=== PATIENT | male | born 1945 | race Caucasian/White ===

== ENCOUNTER 2022-02-02 14:44 | Outpatient (CLI) | payer MEDICARE, SELFPAY ==
[2022-02-02 17:36] LABS: Albumin* 4.5 g/dL (3.3-5.0); Chloride* 102 mmol/L (96-114); Potassium* 4.4 mmol/L (3.6-5.1); Sodium* 135 mmol/L (135-149)
[2022-02-02 17:38] LABS: Bilirubin Total* 0.5 mg/dL (0.1-1.5); Carbon Dioxide* 20 mmol/L (20-32); Cholesterol* 247 mg/dL (90-199); Creatinine* 1.5 mg/dL (0.5-1.5); Estimated Glomerular Filt Rate 48 ml/min; Total Protein* 7.8 g/dL (6.0-8.3)
[2022-02-02 17:39] LABS: Alanine Aminotransferase* 15 U/L (4-50); Alkaline Phosphatase* 73 U/L (40-150); Aspartate Amino Transferase* 22 U/L (12-35); Blood Urea Nitrogen* 31 mg/dL (7-30); Glucose* 115 mg/dL (60-115); Triglycerides* 364 mg/dL (40-149)
[2022-02-02 17:40] LABS: HDL Cholesterol* 38 mg/dL (>=40); LDL Cholesterol Calculated 136 mg/dL (<100)
[2022-02-02 18:11] LABS: PSA Screen* < 0.06 ng/mL (0.10-4.00)
== END 2022-02-02 14:45 | disposition home or self-care (01) ==
PROVIDERS: PCP Internal Medicine; Visit Provider Internal Medicine
DX: I10 Essential (primary) hypertension (principal); E03.9 Hypothyroidism, unspecified; C61 Malignant neoplasm of prostate; Z13.6 Encounter for screening for cardiovascular disorders; Z12.5 Encounter for screening for malignant neoplasm of prostate
CPT/HCPCS: 80053; 80061; 84153; 84443

== ENCOUNTER 2022-06-19 09:32 | Outpatient (CLI) | payer MEDICARE, SELFPAY ==
--- NOTE | 2022-06-19 10:00 | CRLHL7_ITS ---
For Patients: As a result of the 21st Century Cures Act, medical imaging exams and procedure reports are released immediately into your electronic medical record. You may view this report before your referring provider. If you have questions, please contact your health care provider. INDICATION: Neck swelling. Comparison none. TECHNIQUE: CT soft tissue neck with IV contrast. Isovue 370, 93 cc. FINDINGS: Marked enlargement of the left thyroid lobe. There is associated deviation of the trachea and esophagus towards the right. Predominate heterogeneous low-attenuation throughout the left thyroid lobe with central area of cystic change or necrosis (best appreciated series 3, image 62). This left thyroid lobe mass measures approximately 6.1 x 7 x 9.4 cm (transverse by AP by cephalocaudal). Inferior aspect left thyroid lobe extends just below the thoracic inlet. There is heterogeneous low attenuation nodularity of the right thyroid lobe with measuring 2.7 x 2.2 cm. There is low-attenuation nodule within the left neck and just deep to the left sternocleidomastoid muscle measuring approximately 2 x 3 cm (series 3, image 60). Low-attenuation change may be secondary to cystic or necrotic change. No adenopathy elsewhere within the neck. Normal bilateral spot parotid and submandibular glands. Nasopharynx and oropharynx are clear. No inflammation within the parapharyngeal fat pads are retropharyngeal space. Calcified tonsilliths on the left. Normal thickness of the epiglottis. Normal glottis with symmetric vocal cords. The airway is patent. Lung apices are clear. Normal alignment of the cervical spine. Cervical spondylosis. No prevertebral soft tissue swelling. Visualized paranasal sinuses and mastoid air cells are clear. IMPRESSION: 1. Marked enlargement of the left thyroid lobe. Underlying predominantly low attenuation mass involving the left thyroid lobe with central area of cystic change or necrosis. Overall, findings are concerning for thyroid malignancy. Associated mass effect and deviation of the trachea or esophagus towards the right. 2. Low-attenuation nodule within the left neck with central cystic or necrotic change measures 2 x 3 centimeters and is concerning for a metastatic level 4 lymph node. 3. Similar but smaller low attenuation nodularity within the right thyroid lobe. 4. No adenopathy elsewhere. 5. Deep soft tissues of the neck are otherwise normal. 6. Cervical spondylosis Please note that all CT scans at this facility use dose modulation, iterative reconstruction, and/or weight-based dosing when appropriate to reduce radiation dose to as low as reasonably achievable. Dictated by Lanre Carpenter MD @ 06/19/2022 3:35:57 PM (Electronically Signed)
[2022-06-19 10:25] LABS: Creatinine* 1.3 mg/dL (0.5-1.5); Estimated Glomerular Filt Rate 57 ml/min
== END 2022-06-19 09:33 | disposition home or self-care (01) ==
LOC: CT 09:35
PROVIDERS: PCP Internal Medicine; Visit Provider Internal Medicine
DX: R22.1 Localized swelling, mass and lump, neck (principal); E04.9 Nontoxic goiter, unspecified; M47.892 Other spondylosis, cervical region
CPT/HCPCS: 36415; 70491; 82565; Q9967

== ENCOUNTER 2022-06-21 09:08 | Outpatient (CLI) | payer MEDICARE, SELFPAY | END 2022-06-21 09:09 | disposition home or self-care (01) | PROVIDERS: PCP Internal Medicine; Visit Provider Internal Medicine | DX: E07.9 Disorder of thyroid, unspecified (principal) | CPT/HCPCS: 84443 ==

== ENCOUNTER 2022-06-28 09:55 | Outpatient (CLI) | payer MEDICARE, SELFPAY ==
--- NOTE | 2022-06-28 10:15 | CRLHL7_ITS ---
For Patients: As a result of the Cures Act, medical imaging exams and procedure reports are released immediately into your electronic medical record. You may view this report before your referring provider. If you have questions, please contact your health care provider. INDICATION : Left thyroid lobe mass and abnormally enlarged low-density lymph node in the lateral soft tissues adjacent to the thyroid gland within the left lower neck. TECHNIQUE : Ultrasound-guided fine-needle aspiration of left thyroid lobe mass along with core needle biopsy of the large left thyroid lobe mass and core needle biopsy x2 of the enlarged left lower neck lymph node. Comparison CT soft tissue neck 06/19/2022 FINDINGS : PROCEDURE: After the informed consent and time-out, multiple fine needle aspirations were obtained from the large left thyroid lobe mass. Fine needle performed. 25 gauge needles were used. In addition, a single core needle biopsy performed using an 18 gauge Temno needle. Lidocaine was used for local anesthesia. The preliminary cytology was adequate for interpretation. Two core needle biopsy specimens using an 18 gauge Temno needle also performed involving the enlarged left lower neck lymph node which measures 2.8 x 1.8 x 1.8 cm. Real-time imaging was used for guidance and needle placement. Post imaging ultrasound demonstrates no immediate complication. IMPRESSION : Successful fine needle aspiration/core needle biopsy of large left thyroid lobe mass and core needle biopsy of enlarged left lower neck lymph node. Dictated by Lio English MD @ 06/28/2022 12:08:10 PM (Electronically Signed)
--- NOTE | 2022-06-28 11:15 | CRLHL7_ITS ---
For Patients: As a result of the Century Cures Act, medical imaging exams and procedure reports are released immediately into your electronic medical record. You may view this report before your referring provider. If you have questions, please contact your health care provider. Indication: Left thyroid mass Technique: Grayscale ultrasound of the left thyroid mass performed. Comparison: CT soft tissue neck 06/19/2022 Findings: Large mass arising from the left thyroid lobe is present with heterogeneously hypoechoic internal echotexture and measuring at least 9.8 cm in craniocaudad dimension. Impression: Large left thyroid mass. Subsequent biopsy performed. Dictated by Lio English MD @ 06/28/2022 12:06:06 PM (Electronically Signed)
== END 2022-06-28 09:56 | disposition home or self-care (01) ==
LOC: US 09:56
PROVIDERS: PCP Internal Medicine; Visit Provider Internal Medicine
DX: E07.9 Disorder of thyroid, unspecified (principal)
CPT/HCPCS: 10005; 76536; 88173; 88305; 88341; 88342; 88360; 88365; 88366; A4649

== ENCOUNTER 2022-06-29 12:37 | Outpatient (CLI) | payer MEDICARE, SELFPAY ==
--- NOTE | 2022-06-29 13:00 | CRLHL7_ITS ---
For Patients: As a result of the 21st Century Cures Act, medical imaging exams and procedure reports are released immediately into your electronic medical record. You may view this report before your referring provider. If you have questions, please contact your health care provider. Indication: Neck mass Technique: Postcontrast CT chest, abdomen and pelvis. 94 cc Isovue 370 intravenous contrast. Please note that all CT scans at this facility use dose modulation, iterative reconstruction, and/or weight-based dosing when appropriate to reduce radiation dose to as low as reasonably achievable. Comparison: CT neck 06/19/2022 Findings: In the chest, large mass associated with the left thyroid lobe is again noted measuring approximately 6.2 cm. Adjacent low-density left lateral lower neck lymph node measures 1.6 cm. Compression of the left internal jugular vein again noted. Deviation of the trachea to the right. The airway is not compromised. 2 cm right thyroid lobe nodule again noted. There is also a low-density structure within the superior mediastinum adjacent to the trachea measuring 2.2 cm which may represent an additional lymph node. No enlarged lymph nodes lower within the mediastinum or within the doug. No axillary adenopathy. Atherosclerotic disease. No aneurysm. Left lower lobe pulmonary nodule measuring 5 millimeters, 3/44. Perifissural nodule on the same image left lower lobe measuring 7 millimeters. Additional perifissural nodules images 43-44 on the right measuring 6.5 millimeters and 5 millimeters. No infiltrate. No pulmonary edema or pleural effusion. No pneumothorax. In the abdomen, sub centimeters cysts are present within the liver. The gallbladder is normal. No biliary obstruction. Mild pancreatic atrophy. Normal adrenal glands. There are multiple simple renal cortical cysts bilaterally measuring up to 7.1 cm on the right and up to 5.9 cm on the left. There is an additional heterogeneous circumscribed persists with areas of water attenuation and areas of more soft tissue attenuation arising from the inferior pole of the left kidney laterally measuring 3.6 x 3.3 cm. Curvilinear calcifications are noted within the wall of this cyst. No hydronephrosis. Atherosclerotic disease. No aneurysm. No retroperitoneal or mesenteric adenopathy. The stomach appears normal. Normal appearance of the small bowel. In the pelvis, the bladder is without stone. Bilateral small bladder diverticula noted with mild bladder wall trabeculation. The prostate is absent. Sigmoid diverticulosis. No diverticulitis. No bowel obstruction. No free air, free fluid or abscess. Appendix normal. Degenerative disc disease L4-5 on the right. No compression fracture. Impression: Large left thyroid lobe mass with adjacent low-density left lower neck lymph node and possible additional lymph nodes in the superior mediastinum, similar to the prior neck CT. Small bilateral pulmonary nodules which are primarily perifissural measuring up to 7 millimeters. Complex cystic lesion arising from the lower pole of the left kidney with areas of increased attenuation centrally and peripheral calcifications. MRI with and without contrast recommended for further characterization. Status post prostatectomy. Please note that all CT scans at this facility use dose modulation, iterative reconstruction, and/or weight-based dosing when appropriate to reduce radiation dose to as low as reasonably achievable. Dictated by Lio English MD @ 06/29/2022 3:55:52 PM (Electronically Signed)
--- NOTE | 2022-06-29 13:00 | CRLHL7_ITS ---
For Patients: As a result of the Century Cures Act, medical imaging exams and procedure reports are released immediately into your electronic medical record. You may view this report before your referring provider. If you have questions, please contact your health care provider. INDICATION: Thyroid cancer, concern for metastatic disease TECHNIQUE: CT of the neck with 94 ml iodinated contrast agent. Coronal and sagittal reconstructions are included. COMPARISON: CT neck 06/19/2022 FINDINGS: Redemonstration of marked asymmetric low-attenuation enlargement of the left thyroid lobe, with superior margin of the level of the hyoid, and inferior margin extending into the superior mediastinum. The previously noted hypodense nodule along the inferior right thyroid lobe is less conspicuous on today`s exam, possibly technique-related. Similar degree of regional mass effect with rightward deviation of the hypopharynx, larynx, and trachea. However, the visualized airway appears grossly patent. Again noted is an enlarged, cystic/necrotic left level 4 lymph node, measuring 1.8 cm short axis on this exam (series 2, image 60). No other cystic or pathologically enlarged lymph nodes identified in the neck. 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 The left vertebral artery is diffusely diminutive, likely on a congenital basis, with poorly visualized V3 segment. There is a nonspecific 8 mm sclerotic focus along the posterior left mandibular condyle (series 2, image 24). Asymmetric osteoarthritic changes are noted at the right glenohumeral joint and bilateral AC joints. Upper chest findings are dictated separately. IMPRESSION: 1. Redemonstration of marked asymmetric enlargement of the left thyroid lobe suspicious for malignancy, and adjacent cystic/necrotic left level 4 lymph node concerning for bright metastasis. 2. No other suspicious cervical lymphadenopathy identified. 3. 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 This appears stable relative to 06/19/2022, although otherwise age indeterminate. Please note that all CT scans at this facility use dose modulation, iterative reconstruction, and/or weight-based dosing when appropriate to reduce radiation dose to as low as reasonably achievable. Dictated by Jeanine Ziegler MD @ 06/29/2022 3:09:39 PM (Electronically Signed)
== END 2022-06-29 12:38 | disposition home or self-care (01) ==
PROVIDERS: PCP Internal Medicine; Visit Provider Surgery
DX: E07.9 Disorder of thyroid, unspecified (principal); R91.8 Other nonspecific abnormal finding of lung field; N28.1 Cyst of kidney, acquired
CPT/HCPCS: 70491; 71260; 74177; Q9967

== ENCOUNTER 2022-07-20 10:47 | Outpatient (RCR) | payer MEDICARE, SELFPAY ==
[2022-07-20 14:07] LABS: Basophils Absolute Auto 0.03 K/uL (0.00-0.30); Basophils Percent Auto 0.3 % (0.0-3.0); Eosinophils Absolute Auto 0.07 K/uL (0.00-0.50); Eosinophils Percent Auto 0.8 % (0.0-7.0); Hematocrit 41.7 % (37.0-53.0); Hemoglobin* 13.6 gm/dL (13.5-17.5); Immature Granulocytes Abs Auto 0.62 K/uL (0.00-0.30); Lymphocytes Percent Auto 13.1 % (20-44); Mean Corpuscular HGB Conc 33 gm/dL (32-36); Mean Corpuscular Hemoglobin 26 pg (26-34); Mean Corpuscular Volume 80 fL (80-100); Monocytes Percent Auto 1.8 % (0.0-11.0); Platelet Count* 328 K/uL (140-440); RDW Coefficient of Variation % 15.1 % (11.5-15.5); Red Blood Count 5.21 m/uL (4.30-5.90); White Blood Count* 8.84 K/uL (4.50-11.00)
[2022-07-20 14:16] LABS: Slide Review Reflex No
[2022-07-27 09:16] LABS: Basophils Percent Auto 0.9 % (0.0-3.0); Eosinophils Percent Auto 0.1 % (0.0-7.0); Hematocrit 38.8 % (37.0-53.0); Hemoglobin* 12.8 gm/dL (13.5-17.5); Immature Granulocytes Pct Auto 6.8 %; Lymphocytes Percent Auto 12.3 % (20-44); Mean Corpuscular HGB Conc 33 gm/dL (32-36); Mean Corpuscular Hemoglobin 26 pg (26-34); Mean Corpuscular Volume 80 fL (80-100); Monocytes Percent Auto 10.7 % (0.0-11.0); Neutrophils Percent Auto 69.2 % (42.0-72.0); Platelet Count* 214 K/uL (140-440); RDW Coefficient of Variation % 15.6 % (11.5-15.5); Red Blood Count 4.88 m/uL (4.30-5.90)
[2022-07-27 09:27] LABS: Slide Review Reflex No
== END 2023-06-22 08:36 | disposition home or self-care (01) ==
LOC: LAB 10:47
PROVIDERS: PCP Internal Medicine
DX: Z51.11 Encounter for antineoplastic chemotherapy (principal); C83.39 Diffuse large B-cell lymphoma, extranodal and solid organ sites; Z79.899 Other long term (current) drug therapy
CPT/HCPCS: 36415; 85025

== ENCOUNTER 2022-11-10 07:54 | Outpatient (RCR) | payer MEDICARE, SELFPAY | END 2023-05-09 23:59 | disposition home or self-care (01) | LOC: CCIC 07:54 | PROVIDERS: PCP Internal Medicine; Referring Provider Internal Medicine; Visit Provider Internal Medicine | DX: C83.39 Diffuse large B-cell lymphoma, extranodal and solid organ sites (principal) | CPT/HCPCS: 99211 ==

== ENCOUNTER 2023-02-22 08:38 | Outpatient (CLI) | payer MEDICARE, SELFPAY | END 2023-02-22 08:39 | disposition home or self-care (01) | LOC: NFLDREF 02-26 05:50 | PROVIDERS: PCP Internal Medicine; Referring Provider Internal Medicine; Visit Provider Internal Medicine | DX: C61 Malignant neoplasm of prostate (principal); E07.9 Disorder of thyroid, unspecified | CPT/HCPCS: 84153; 84443 ==

== ENCOUNTER 2023-12-12 09:30 | Outpatient (CLI) | payer MEDICARE, SELFPAY ==
--- OUTSIDE RECORDS SUMMARY | 2023-12-12 09:34 | XMS_ITS ---
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 Past Plans Flushes/Hydration Plan Name Start Date Discontinue Date Treatment Medications Discontinue Reason Plan Provider VASCULAR ACCESS PATENCY - PERIPHERAL INTRAVENOUS CATHETER AND RAPID INFUSION CATHETER 07/14/2022 07/09/2023 No medications scheduled. Therapy Complete - Hematology / Oncology Treatment 1 Plan Name Start Date Discontinue Date Treatment Medications Discontinue Reason Plan Provider Cycles R-CHOP (riTUXimab / cyclophosphamide / DOXOrubicin / vinCRIStine / predniSONE) 07/15/19 23 02/19/2023 cycloPHOSphamide (Cytoxan)cycloPHOS phamide (Cytoxan) IVPB in 250 mL (1 g vial) (Cytoxan)DOXOrubic in (Adriamycin)riTUXi mab-pvvr (Ruxience)riTUXima b-pvvr (Ruxience) IVPB (RESTRICTED) (Ruxience)vinCRISt ine (Oncovin)vinCRISti ne (Oncovin) IVPB in 50 mL solution Therapy Complete Anna Arias APRN, C.N.P., D.N.P. 4 of 6 cycles started Radiation Treatments * Plan Last Treated On Elapsed Days Fractions Treated Prescribed Fraction Dose Prescribed Total Dose [id number] 12/08/2022 18 15 of 15 200 cGy 3,000 cGy Reference Point Last Treated On Elapsed Days Session Dose Total Dose [id number] 12/08/2022 18 200 cGy 3,000 cGy Lifetime Dose Tracking * Chemical Lifetime Dose Automatic Entry Manual Entr y doxorubicin 204.61 mg/m2 (400 mg) 204.61 mg/m2 (400 m g) 0 mg/m2 (0 mg) Pediatric total anthracycline 204.61 mg/m2 (400 mg) 204.61 mg/m2 (400 mg) 0 mg/m2 (0 mg) Adult total anthracycline 204.61 mg/m2 (400 mg) 204.61 mg/m2 (400 mg) 0 mg/m2 (0 mg)
--- OUTSIDE RECORDS SUMMARY | 2023-12-12 09:34 | XMS_ITS ---
Author Organization [facility] Address [address] [place] [address] Care Team Providers Care Buffer Machine Name Role Phone Unavailable Unavailable Unavailable Surgery Details Not on file Complications Check Surgery Details section. Procedure Estimated Blood Loss Check Surgery Details section. Procedure Findings Check Surgery Details section. Procedure Specimens Taken Check Surgery Details section.
--- OUTSIDE RECORDS SUMMARY | 2023-12-12 09:34 | XMS_ITS | Encounter Summary ---
Author Organization [facility] Address [address] [place] [address] Care Team Providers Care Immunologist Name Role Phone Elsewhere, Pcp Primary Care Provider Unavailabl e Encounter Details Date Type Department Care Team (Late st Contact Info) Description 11/01/2023 Clinical Communication Primary Care on Demand at [facility] [address] [place] [phone] Andrés Lai M.D. [address] [place] [phone] Social History Tobacco Use Types Packs/Day Years Used Date Smoking Tobacco: Every Day Cigarettes 0.5 60 Started: [birth year]01/1963 Passive Smoke Exposure: Current Smokeless Tobacco: Never Comments:10-12 Cig. Daily Passive Exposure Comments: Alcohol Use Standard Drinks/Week Comments Never 0 (1 standard drink = 0.6 oz pur e alcohol) [facility] Utilities Answer Date Recorded In the past 12 months has e electric, gas, oil, or water company threatened to shut off services in your home? No 09/17/2023 Humiliation, Afraid, Rape, and Kick questionnair e Answer Date Recorded Within the last year, have y ou been afraid of your partner or ex-partner? No 10/19/2022 Within the last year, have y ou been humiliated or emotionally abused in other ways by your partner or ex-partner? No Within the last year, have y ou been kicked, hit, slapped, or otherwise physically hurt by your partner or ex-partner? No 10/19/2022 Within the last year, have y ou been raped or forced to have any kind of sexual activity by your partner or ex-partner? No 10/19/2022 Social Connection and Isolation Panel [NHANES] A nswer Date Recorded In a typical week, how many times do you talk on the phone with family, friends, or neighbors? Twice a week 06/29/2022 How often do you get together with friends or re latives? Once a week 06/29/2022 How often do you attend orthodoxy or oriental orthodox serv ices? Never 06/29/2022 Do you belong to any clubs o r organizations such as orthodoxy groups, unions, fraternal or athletic groups, or school groups? No 06/29/2022 How often do you attend meet ings of the clubs or organizations you belong to? Never 06/29/2022 Are you , , di vorced, , never , or living with a partner? 06/29/2022 AUDIT-C Answer Date Recorded Q1: How often do you have a drink containing alc ohol? Never 06/29/2022 Average Number of Drinks Not on file 023 Frequency of Binge Drinking Not on file 12/2022 Overall Financial Resource Strain (CARDIA) Answe r Date Recorded How hard is it for you to pa y for the very basics like food, housing, medical care, and heating? Not very hard 10/19/2022 [facility] Occupat ional Health - Occupational Stress Questionnaire Answer Date Recorded Do you feel stress - tense, restless, nervous, or anxious, or unable to sleep at night because your mind is troubled all the time - these days? To some extent 06/29/2022 Exercise Vital Sign Answer Date Recorde d On average, how many days pe r week do you engage in moderate to strenuous exercise (like a brisk walk)? 2 days 09/17/2023 On average, how many minutes do you engage in exercise at this level? 30 min 09/17/2023 Hunger Vital Sign Answer Date Recorded Within the past 12 months, y ou worried that your food would run out before you got the money to buy more. Never true 09/17/19 24 Within the past 12 months, t he food you bought just didn't last and you didn't have money to get more. Never true 09/17/2023 PRAPARE - Transportation Answer Date Re corded In the past 12 months, has l ack of transportation kept you from medical appointments or from getting medications? No 08/22 In the past 12 months, has l ack of transportation kept you from meetings, work, or from getting things needed for daily living? No 09/17/2023 Nutrition Answer Date Recorded On average, how many serving s of fruits and vegetables do you eat per day (serving size is equal to 1 cup or approximately the size of a tennis ball)? 3-5 09/17/2023 Dental Answer Date Recorded Dental: Regular Dentist No 06/30/19 Employment Answer Date Recorded Employment status Permanently disabled Housing Stability Answer Date Recorded What is your living situation today? I have a [facility] place to live 09/17/2023 Education Answer Date Recorded What is the highest level of school you have completed or the highest degree you have received? 12th grade 06/29/2022 Sex and Gender Information Value Date Recorded Sex Assigned at Male 06/29/2022 5:22 PM CORPORATE DIRECTOR OF PHARMACY Gender Identity Male 06/29/2022 5:22 PM CORPORATE DIRECTOR OF PHARMACY Sexual Orientation Straight 06/29/2022 5: 22 PM CORPORATE DIRECTOR OF PHARMACY documented as of this encounter Plan of Treatment Upcoming Encounters Date Type Department Care Team (Latest Contact Info) Description 02/04/2024 2:30 PM CDT Clinical Communication Virtual Review in [place], [place] [address] [place] [phone] 02/06/2024 9:00 AM CDT Appointment Department of Laboratory Medicine and Pathology, [facility] in [place], [place] [address] [place] [phone] Kamille White M.D., Ph.D. [address] [place] [phone] 02/06/2024 11:15 AM CDT Appointment Department of Radiology, [facility], in [place], [place] [address] [place] [phone] Kamille White M.D., Ph.D. [address] [place] [phone] 02/06/2024 2:00 PM CDT Office Visit Division of Hematology in [place], [place] [address] [place] [phone] Anna Arias APRN, C.N.P., D.N.P. [address] [place] [phone] documented as of this encounter Visit Diagnoses Not on filedocumented in this encounter Care Teams Immunologist Relationship Specialty Start Date End Date Elsewhere, Pcp PCP - General Internal Medicine 02/16/23 documented as of this encounter
--- OUTSIDE RECORDS SUMMARY | 2023-12-12 09:34 | XMS_ITS | Referral Summary ---
Author Organization [facility] Address [address] [place] [address] Care Team Providers Care Medical Chemist Name Role Phone Elsewhere, Pcp Primary Care Provider Unavailabl e Source Comments Patient records contain information from all sites at [facility]. For routine questions regarding patient records, call [phone] during business hours, M-F 8:00 AM - 5:00 PM Central Time. Record requests for emergency care only can be directed to [phone] at any time.[facility] Encounters Date Type Department Care Team Description 11/01/2023 Clinical Communication Primary Care on Demand at [address] [phone] Andrés Lai M.D. 09/21/2023 9:36 AM CDT - 09/21/2023 11:20 AM CDT Hospital Encounter Department of Radiology, [facility] in [place], [place] [address] [place] [address] Kamille White M.D., Ph.D. 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 Nodule Thyroid Discharge Disposition: Home or Self Care 09/21/2023 4:30 PM CDT Office Visit Division of Hematology in [place], [place] [address] [place] [phone] Kamille White M.D., Ph.D. 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) (Primary Dx); Nicotine Dependence 09/18/2023 2:15 PM CDT Clinical Communication Virtual Review in [place], [place] [address] [place] [phone] Pre-visit Intake from Last 3 Months Allergies Active Allergy Reactions Criticality Noted Date Comments Aspirin Nausea Only,Other (see comments),GI intolerance 03/06/2005 Nsaids (Non-Steroidal Anti-Inflammatory Drug) Rash Low 06/12/2022 Omeprazole Other (see comments) 07/11/2022 Gout, painful, red lower extremities Medications Medication Sig Dispensed Refills Start Date End Date Status amLODIPine (NORVASC) 5 mg tablet Take 5 mg by mouth at bedtime. 08/28/2016 Active levothyroxine (SYNTHROID, LEVOTHROID) 100 mcg tablet Take 100 mcg by mouth daily. 03/30/2022 Active msujihlb-niruqqhje-K C (CORTISPORIN) 3.5-10,000-1 mg/mL-unit/mL-% otic solution Administer 1-2 drops into each ear as needed. INSTILL 4 DROPS INTO THE EAR(S) EVERY 8 HOURS FOR EAR PAIN* 12/21/2022 Active triamterene-hydroCHL OROthiazide (DYAZIDE) 37.5-25 mg per capsule Take 1 capsule by mouth every morning. 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 07/07/2022 Cancer Staging:Clinical stage from 06/30/2022:Stage II bulky(Diffuse large B-cell lymphoma) - Unsigned Encounter For Antineoplastic Chemotherapy 2022 Medication Therapy Hospital Insurance Representative Not Anticoagulant 0 07/07/2022 Hypertension 05/03/2016 Primary Malignant Neoplasm Of Prostate 6 Immunizations Name Administration Dates Next Due H1N1 Inj 02/25/2009 Influenza (IM) Preservative Free 02/08/2010 Influenza Split 02/09/2016 Influenza high dose QV(65 ye ars or older) (PF) 01/23/2022,03/05/2021,02/25/2020 Influenza, Seasonal, Injectable 03/31/2008,03/06 Influenza, Unspecified 01/10/2013,2008,03/23/2008,2005,01/21/2005,12/22/2004 PCV13 01/22/2016,02/18/2015 PPSV23 08/23/2015 RZV (SHINGRIX) 04/26/2020,02/25/2020 Td, (Adult) Unspecified 04/23/2005 Tdap 02/19/2019 influenza high dose (65 year s or older) (PF) 02/19/2019,02/25/2018,02/19/2016,2015,01/22/2016 influenza vaccine quad (FLUZONE/FLUARIX) (6 months and older)(PF) 03/16/2021,03/07/2018,02/07/2017,2014,02/25/2009 Social History Tobacco Use Types Packs/Day Years Used Date Smoking Tobacco: Every Day Cigarettes 0.5 60 Started: [birth year]/01/1963 Passive Smoke Exposure: Current Smokeless Tobacco: Never Tobacco Cessation:Ready to Q uit: Not Asked; Counseling Given: Not Answered Comments:10-12 Cig. Daily Passive Exposure Comments: Alcohol Use Standard Drinks/Week Comments Never 0 (1 standard drink = 0.6 oz pur e alcohol) [facility] [employer]ities Answer Date Recorded In the past 12 months has [facility] [employer], or water [employer] threatened to shut off services in your [...] week 06/29/2022 How often do you attend baptism or hindu serv ices? Never 06/29/2022 Do you belong to any clubs o r organizations such as baptism groups, unions, fraternal or athletic groups, or [...] care, and heating? Not very hard 10/19/2022 [facility] [place] of Occupat ional Health - Occupational Stress [...] your living situation today? I have a [facility] place to live 09/17/2023 Education Answer Date Recorded What is the highest level of school you have completed or the highest degree you have received? 12th grade 06/29/2022 Sex and Gender Information Value Date Recorded Sex Assigned at Male 06/29/2022 5:22 PM FITNESS SPECIALIST Gender Identity Male 06/29/2022 5:22 PM FITNESS SPECIALIST Sexual Orientation Straight 06/29/2022 5: 22 PM FITNESS SPECIALIST Last Filed Vital Signs Vital Sign Reading Time Taken Comments Blood Pressure 162/73 09/21/2023 4:15 PM CDT Pulse 75 09/21/2023 4:15 PM CDT Temperature 37.1 ??C (98.7 ??F) 09/21/2023 4:15 PM CD T Respiratory Rate 16 07/14/2022 11:30 AM CDT Oxygen Saturation 96% 09/21/2023 4:15 PM CDT Inhaled Oxygen Concentration - - Weight 87.6 kg (193 lb 2 oz) 09/21/2023 4:15 PM CDT Height 174.4 cm (5' 8.66) 09/21/2023 4:15 PM CD T Body Mass Index 28.8 09/21/2023 4:15 PM CDT Plan of Treatment Upcoming Encounters Date Type Department Care Team (Latest Contact Info) Description 02/04/2024 2:30 PM CDT Clinical Communication Virtual Review in [place] [address] [place] [phone] 02/06/2024 9:00 AM CDT Appointment Department of Laboratory Medicine and Pathology, [facility] in [place], [place] [address] [place] [address] Kamille White M.D., Ph.D. [address] [place] [phone] 02/06/2024 11:15 AM CDT Appointment Department of Radiology, [facility] in [place], [place] [address] [place] [phone] Kamille White M.D., Ph.D. [address] [place] [phone] 02/06/2024 2:00 PM CDT Office Visit Division of Hematology in [place], [place] [address] [place] [address] Anna Arias APRN, C.N.P., D.N.P. [address] [place] [phone] Medical Devices Implanted Type Area Hull Grinder Device Identifier Shelf Expiration Date Model / Serial / Lot Conversions - Default Historical Implant Device Implanted:2015 (Quantity not on file) Mesh or Patch Description:Device Status Te xt - MeshPatch. Conversions - Default Historical Implant Device Implanted:2016 (Quantity not on file) Ocular Lens Right: Eye Description:Body Location - Eye R. Device Status Text - OculrLens. Conversions - Default Historical Implant Device Implanted:2016 (Quantity not on file) Ocular Lens Left: Eye Description:Body Location - Eye L. Device Status Text - OculrLens. 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) CREATININE WITH EGFR, S/P Routine 09/21/2023 9:30 AM CDT 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) CBC WITH DIFFERENTIAL, B Routine 09/21/2023 9:30 AM CDT 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) CALCIUM, TOT, S/P Routine 09/21/2023 9:3 0 AM CDT 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) BILIRUBIN, TOT, S/P Routine 09/21/2023 9 :30 AM CDT 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) ASPARTATE AMINOTRANSFERASE (AST), S/P Routine 09/21/2023 9:30 AM CDT 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) ALKALINE PHOSPHATASE, S/P Routine 09/21/2023 9:30 AM CDT 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 No definite discrete thyroid mass or nodule identified. 2. Diffuse parenchymal heterogeneity of thyroid likely representing a combination of chronic thyroiditis and posttreatment changes. 3. No enlarged or suspicious cervical lymph nodes. Narrative 09/21/2023 2:43 PM CDT EXAM: US THYROID COMPARISON: PET/CT 09/21/2023. Thyroid ultrasound 06/30/2022. FINDINGS: The right thyroid lobe measures: 2.1 cm x 2.0 cm x 4.9 cm, previously 3.0 x 3.1 x 6.7 cm. The left thyroid lobe measures: 1.2 cm x 1.7 cm x 5.4 cm, previously 5.6 x 5.0 x 10.9 cm. The isthmus measures: 1.8 mm in AP diameter. Previously 14.4 mm Thyroid parenchymal evaluation shows: Redemonstration of the diffuse parenchymal heterogeneity of the right thyroid lobe, and improved improved visualization of similar features in the left thyroid lobe. A more focal hypoechoic area at the level of the left mid thyroid medially is favored to represent heterogeneity over discrete mass given no focal uptake reported on same day PET/CT. Recommend continued attention on follow-up. No definite discrete mass or nodule identified. Lymph nodes: ??Neck levels 1-7 were surveyed and demonstrated no enlarged or suspicious lymph nodes. The thyroid nodule descriptions and categories are based on the AskMayoExpert Thyroid Nodule Care Process Model and ACR TI-RADS. Link: https://askmayoexpert.[facility].org/topic/clinical-answers/cnt-99891990/sec-203 05296 ?? ACR Link: ??https://www.acr.org/Clinical-Resources/Xahwzjgkc-wxy-Gymv-Systems/TI-RADS The AskMayoExpert Thyroid Nodule CPM states the following recommendations: ? No suspicion or Extremely low-suspicion nodule: No FNA, no imaging f/u ? Low-suspicion nodule: FNA if greater than or equal to 25 mm; US f/u in 2-5 yrs if greater than or equal to 15 mm ? Intermediate-suspicion nodule: FNA if greater than or equal to 15 mm; US f/u in 1-3 yrs if greater than or equal to 10 mm ? High-suspicion nodule: FNA if greater than or equal to 10 mm (or smaller if desired); US f/u in 1 yr if not FNA Procedure Note Kojo Saleh M.D. - 09/21/2023 EXAM: US THYROID COMPARISON: PET/CT 09/21/2023. Thyroid ultrasound 06/30/2022. FINDINGS: The right thyroid lobe measures: 2.1 cm x 2.0 cm x 4.9 cm, previously 3.0x 3.1 x 6.7 cm. The left thyroid lobe measures: 1.2 cm x 1.7 cm x 5.4 cm, previously 5.6 x5.0 x 10.9 cm. The isthmus measures: 1.8 mm in AP diameter. Previously 14.4 mm Thyroid parenchymal evaluation shows: Redemonstration of the diffuse parenchymal heterogeneity of the rightthyroid lobe, and improved improved visualization of similar features inthe left thyroid lobe. A more focal hypoechoic area at the level of theleft mid thyroid medially is favored to represent heterogeneity over discrete mass given no focal uptake reportedon same day PET/CT. Recommend continued attention on follow-up. Nodefinite discrete mass or nodule identified. Lymph nodes: Neck levels 1-7 were surveyed and demonstrated no enlargedor suspicious lymph nodes. The thyroid nodule descriptions and categories are based on theAskMayoExpert Thyroid Nodule Care Process Model and ACR TI-RADS. Link:https://askmayoexpert.[facility].org/topic/clinical-answers/cnt-52384154/se c-203 71556 ACR Link:https://www.acr.org/Clinical-Resources/Sfnfzdcvd-upq-Zyfe-Systems/TI-RADS The AskMayoExpert Thyroid Nodule CPM states the followingrecommendations: No suspicion or Extremely low-suspicion nodule: No FNA, no imagingf/u Low-suspicion nodule: FNA if greater than or equal to 25 mm; US f/uin 2-5 yrs if greater than or equal to 15 mm Intermediate-suspicion nodule: FNA if greater than or equal to 15 mm;US f/u in 1-3 yrs if greater than or equal to 10 mm High-suspicion nodule: FNA if greater than or equal to 10 mm (orsmaller if desired); US f/u in 1 yr if not FNA IMPRESSION: 1. No definite discrete thyroid mass or nodule identified. 2. Diffuse parenchymal heterogeneity of thyroid likely representing acombination of chronic thyroiditis and posttreatment changes. 3. No enlarged or suspicious cervical lymph nodes. Kamille White M.D., Ph.D. IMG US PROCEDURES * PET CT Skull to Thigh FDG (09/21/2023 11:25 AM CDT) Anatomical Region Laterality Modality Body, Nuclear Medicine PET R ST LOS, PET ARZ LOS, Nuclear Medicine PET FLA LOS, Nuclear Medicine N/A Positron Emission Tomography (PET), Positron Emission Tomography (PET) Impressions 09/21/2023 12:17 PM CDT 1. Stable moderate FDG uptake within the thyroid which is favored to be inflammatory related to prior radiation therapy and residual lymphoma is felt to be less likely. 2. No evidence of extrathyroidal FDG avid lymphoma. 3. Stable left lower pole indeterminate renal lesion. Would recommend MRI or CT renal mass protocol for further evaluation. Narrative 09/21/2023 12:17 PM CDT EXAM: ??PET CT SKULL TO THIGH FDG Serum glucose at time of F-18 FDG injection was 126 mg/dL. Patient followed standard dietary/fasting requirements for this exam. RADIOPHARMACEUTICAL/MEDS: Route: intravenous fludeoxyglucose F 18 injection LONGTERM (FDG F-18),9.93 millicurie TECHNIQUE: ??F-18 FDG PET/CT scan was performed from the vertex through the upper thighs with low dose, non-contrast, free-breathing CT images for attenuation correction and anatomic localization (AC/AL), with imaging beginning at approximately 60 minutes after radiotracer injection. ? 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 Subsequent treatment strategy. The patient reports no recent vaccinations. FINDINGS: ??Similar relatively diffuse uptake in both lobes of the thyroid with SUV max 10.8 in the right lobe (previously SUV max 10.5) and SUV max 5.4 in the left lobe (previously SUV max 5.5). No evidence of extrathyroidal FDG avid lymphoma. Multiple renal cysts with an indeterminate unchanged exophytic left lower pole peripherally calcified lesion measuring up to 3.7 cm with mild uptake along the periphery (image 238). Scattered areas of mild benign musculoskeletal uptake most notable at the shoulders. Low-dose noncontrast CT findings: Coronary artery calcifications. Basilar pulmonary atelectasis. Gynecomastia. Moderate aortoiliac calcifications. Unchanged subcentimeter hepatic hypoattenuating lesions likely cysts or hemangiomas. Mild pancreatic parenchymal atrophy with a calcification. Colonic diverticulosis. Prior prostatectomy. Degenerative changes throughout the spine. Procedure Note Stephanie Andrade M.D. - 09/21/2023 EXAM: PET CT SKULL TO THIGH FDG Serum glucose at time of F-18 FDG injection was 126 mg/dL. Patientfollowed standard dietary/fasting requirements for this exam. RADIOPHARMACEUTICAL/MEDS: Route: intravenous fludeoxyglucose F 18 injection LONGTERM (FDG F-18),9.93 millicurie TECHNIQUE: F-18 FDG PET/CT scan was performed from the vertex through theupper thighs with low dose, non-contrast, free-breathing CT images forattenuation correction and anatomic localization (AC/AL), with imagingbeginning at approximately 60 minutes after radiotracer injection. COMPARISON: 05/28/2023 and 02/07/2023 PET/CT INDICATION: History of diffuse large B cell lymphoma involving thethyroid status post radiation therapy in November 2022. Subsequent treatmentstrategy. The patient reports no recent vaccinations. FINDINGS: Similar relatively diffuse uptake in both lobes of the thyroidwith SUV max 10.8 in the right lobe (previously SUV max 10.5) and SUV max5.4 in the left lobe (previously SUV max 5.5). No evidence of extrathyroidal FDG avid lymphoma. Multiple renal cysts with an indeterminate unchanged exophytic left lowerpole peripherally calcified lesion measuring up to 3.7 cm with mild uptakealong the periphery (image 238). Scattered areas of mild benign musculoskeletal uptake most notable at theshoulders. Low-dose noncontrast CT findings: Coronary artery calcifications. Basilarpulmonary atelectasis. Gynecomastia. Moderate aortoiliac calcifications.Unchanged subcentimeter hepatic hypoattenuating lesions likely cysts orhemangiomas. Mild pancreatic parenchymal atrophy with a calcification. Colonic diverticulosis. Priorprostatectomy. Degenerative changes throughout the spine. IMPRESSION: 1. Stable moderate FDG uptake within the thyroid which is favored to beinflammatory related to prior radiation therapy and residual lymphoma isfelt to be less likely. 2. No evidence of extrathyroidal FDG avid lymphoma. 3. Stable left lower pole indeterminate renal lesion. Would recommend MRIor CT renal mass protocol for further evaluation. Kamille White M.D., Ph.D. [facility] PROCEDURES * (ABNORMAL) CBC with Differential, Blood (09/21/2023 9:30 AM CDT) Pathologist [facility] Hemoglobin 14.3 13.2 - 16.6 g/dL 09/21/2023 10:21 AM CDT DTL Hematocrit 42.9 38.3 - 48.6 % 09/21/2023 10:21 AM CDT DTL Erythrocytes 5.25 4.35 - 5.65 x10(12)/L 09/21/2023 10:21 AM CDT DTL MCV 81.7 78.2 - 97.9 fL 09/21/2023 10:21 AM CDT DTL RBC Distrib Width 15.9(H) 11.8 - 14.5 % 09/21/2023 10:21 AM CDT DTL Platelet Count 332(H) 135 - 317 x10(9)/L 09/21/2023 10:21 AM CDT DTL Leukocytes 10.5(H) 3.4 - 9.6 x10(9)/L 09/21/2023 10:21 AM CDT DTL Neutrophils 7.94(H) 1.56 - 6.45 x10(9)/L 09/21/2023 10:21 AM CDT DH[facility] Lymphocytes 1.35 0.95 - 3.07 x10(9)/L 09/21/2023 10:21 AM CDT DTL Monocytes 1.04(H) 0.26 - 0.81 x10(9)/L 09/21/2023 10:21 AM CDT DTL Eosinophils 0.15 0.03 - 0.48 x10(9)/L 09/21/2023 10:21 AM CDT DTL Basophils 0.06 0.01 - 0.08 x10(9)/L 09/21/2023 10:21 AM CDT DTL Blood (Blood, Venous) 09/21/2023 9:30 AM CDT 09/21/2023 9:48 AM CDT Kamille White M.D., Ph.D. LAB BLOOD ADD-ON [facility] [address] D[address] [facility] [address] [place] [address] [facility] [address] [place] [address] * AST (Aspartate Aminotransferase) (09/21/2023 9:30 AM CDT) Aspartate Aminotransferase (AST), P 18 8 - 48 U/L 09/21/2023 10:13 AM CDT METH Blood (Blood, Venous) 09/21/2023 9:30 AM CDT 09/21/2023 9:48 AM CDT Kamille White M.D., Ph.D. LAB BLOOD ADD-ON Performing Organization Address City/[facility] Co de Phone Number [facility] [address] [place] [address], [facility] METH [facility] [address] [place] [address] * Potassium (09/21/2023 9:30 AM CDT) Potassium, S 4.8 3.6 - 5.2 mmol/L 09/21/2023 10:29 AM CDT DTL Blood (Blood, Venous) 09/21/2023 9:30 AM CDT 09/21/2023 10:06 AM CDT Kamille White M.D., Ph.D. LAB BLOOD ADD-ON [facility] [address] [place] [address] * Alkaline Phosphatase (09/21/2023 9:30 AM CDT) [facility] Alkaline Phosphatase, S 66 40 - 129 U/L 09/21/2023 10:29 AM CDT DTL Blood (Blood, Venous) 09/21/2023 9:30 AM CDT 09/21/2023 10:06 AM CDT Kamille White M.D., Ph.D. LAB BLOOD ADD-ON Performing Organization Address City/[facility]/ZIP Co de Phone Number [facility] [address] [place] [address] * LD (Lactate Dehydrogenase) (09/21/2023 9:30 AM CDT) [facility] Cesia LD 181 122 - 222 U/L 09/21/2023 10:15 AM CDT DTL Blood (Blood, Venous) 09/21/2023 9:30 AM CDT 09/21/2023 9:59 AM CDT Kamille White M.D., Ph.D. LAB BLOOD NON ADD-ON Performing Organization Address City/[facility]/ZIP Co de Phone Number [facility] [address] [place] [address] * (ABNORMAL) Creatinine with Estimated GFR (09/21/2023 9:30 AM CDT) [facility] Creatinine 1.75(H) 0.74 - 1.35 mg/dL 09/21/2023 10:29 AM CDT DTL Estimated GFR (eGFR) 40(L) >=60 mL/min/BSA 09/21/2023 10:29 AM CDT DTL Comment: Estimated GFR calculated using the 2020 CKD_EPI creatinine equation. Blood (Blood, Venous) 09/21/2023 9:30 AM CDT 09/21/2023 10:06 AM CDT Kamille White M.D., Ph.D. LAB BLOOD ADD-ON [facility] [address] [place] [address] * Calcium, Total (09/21/2023 9:30 AM CDT) Calcium, Total, S 10.0 8.8 - 10.2 mg/dL 09/21/2023 10:29 AM CDT DTL Blood (Blood, Venous) 09/21/2023 9:30 AM CDT 09/21/2023 10:06 AM CDT Kamille White M.D., Ph.D. LAB BLOOD ADD-ON Performing Organization Address City/[facility]/ZIP Co de Phone Number [facility] [address] [place] [address] * Bilirubin, Total (09/21/2023 9:30 AM CDT) Bilirubin, Total, P 0.6 0.0 - 1.2 mg/dL 09/21/2023 10:13 AM CDT METH Blood (Blood, Venous) 09/21/2023 9:30 AM CDT 09/21/2023 9:48 AM CDT Kamille White M.D., Ph.D. LAB BLOOD ADD-ON [facility] [address] [place] [address], [facility] METH [facility] [address] [place] [address] * (ABNORMAL) Comprehensive Metabolic Panel (02/07/2023 12:20 PM CDT) Potassium, S 4.8 3.6 - 5.2 mmol/L 02/07/2023 1:16 PM CDT DTL Sodium, S 136 135 - 145 mmol/L 02/07/2023 1:16 PM CDT DTL Chloride, S 102 98 - 107 mmol/L 02/07/2023 1:16 PM CDT DTL Bicarbonate, S 21(L) 22 - 29 mmol/L 02/07/2023 1:16 PM CDT DTL Anion Gap 13 7 - 15 02/07/2023 1:16 PM CDT DTL BUN (Blood Urea Nitrogen), S 30(H) 8 - 24 mg/dL 02/07/2023 1:16 PM CDT DTL Creatinine 1.32 0.74 - 1.35 mg/dL 02/07/2023 1:16 PM CDT DTL Estimated GFR (eGFR) 56(L) >=60 mL/min/BS A 02/07/2023 1:16 PM CDT DTL Comment: Estimated GFR calculated using the 2020 CKD_EPI creatinine equation. Calcium, Total, S 9.5 8.8 - 10.2 mg/dL 02/07/2023 1:16 PM CDT DTL Glucose, S 101 70 - 140 mg/dL 02/07/2023 1:16 PM CDT DTL Protein, Total, S 6.9 6.3 - 7.9 g/dL 02/07/2023 1:16 PM CDT DTL Albumin, S 4.3 3.5 - 5.0 g/dL 02/07/2023 1:16 PM CDT DTL Aspartate Aminotransferase (AST), S 20 8 - 48 U/L 02/07/2023 1:16 PM CDT DTL Alkaline Phosphatase, S 67 40 - 129 U/L 02/07/2023 1:16 PM CDT DTL Alanine Aminotransferase (ALT), S 16 7 - 55 U/L 02/07/2023 1:16 PM CDT DTL Bilirubin, Total, S 0.5 0.0 - 1.2 mg/dL 02/07/2023 1:16 PM CDT DTL Blood (Blood, Venous) 02/07/2023 12:20 PM CDT 02/07/2023 12:54 PM CDT Brandon Putnam APRN, C.N.P., M.S. LAB BLOOD ADD-ON [facility] [address] [place] [address], [facility] [address] [place] [address] * S-TSH (Thyroid-Stimulating Hormone - Sensitive) (06/30/2022 8:56 AM FITNESS SPECIALIST) TSH, Sensitive 2.8 0.3 - 4.2 mIU/L 06/30/2022 10:07 AM FITNESS SPECIALIST DTL Blood (Blood, Venous) 06/30/2022 8:56 AM FITNESS SPECIALIST 06/30/2022 9:34 AM FITNESS SPECIALIST Kevin Chun M.D. LAB BLOOD ADD-ON Performing Organization Address City/[facility] Co de Phone Number [facility] [address] [place] [address], [facility] 200 [place] [address] from Last 3 Months or Most Recently Relevant to Health Maintenance Care Teams Medical Chemist Relationship Specialty Start Date End Date Elsewhere, Pcp PCP - General Internal Medicine 02/16/23
--- OUTSIDE RECORDS SUMMARY | 2023-12-12 09:34 | XMS_ITS | Clinical Summary ---
Author Organization [facility] Address [address] [place] [address] Care Team Providers Care Mortar Worker Name Role Phone Elsewhere, Pcp Primary Care Provider Unavailabl e Source Comments Patient records contain information from all sites at [facility]. For routine questions regarding patient records, call [phone] during business hours, M-F 8:00 AM - 5:00 PM Central Time. Record requests for emergency care only can be directed to [phone] at any time.[facility] Allergies Active Allergy Reactions Criticality Noted Date [...] 100 mcg by mouth daily. 03/30/2022 Active impuglxj-fxmxymprg-Y C (CORTISPORIN) 3.5-10,000-1 mg/mL-unit/mL-% otic solution Administer [...] Encounter For Antineoplastic Chemotherapy 2022 Medication Therapy Usp Not Anticoagulant 0 07/07/2022 Hypertension 05/03/2016 Primary Malignant Neoplasm Of Prostate 6 Encounters Date Type Department Care Team Description 11/01/2023 Clinical Communication Primary Care on Demand at [address] [phone] Andrés Lai M.D. 09/21/2023 4:30 PM CDT Office Visit Division of Hematology in [address] [phone] Kamille White M.D., Ph.D. 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 Nodule Thyroid Discharge Disposition: Home or Self Care 09/21/2023 9:36 AM CDT - 09/21/2023 11:20 AM CDT Hospital Encounter Department of Radiology, [facility] in [address] [phone] Kamille White M.D., Ph.D. 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) Discharge Disposition: Home or Self Care 09/18/2023 2:15 PM CDT Clinical Communication Virtual Review in [place], [place] [address] [place] [address] Pre-visit Intake from Last 3 Months Immunizations Name Administration Dates Next Due H1N1 [...] quad (FLUZONE/FLUARIX) (6 months and older)(PF) 03/16/2021,03/07/2018,02/07/2017,2014,02/25/2009 Family History Medical History Relation Name Comments Arthritis Father te Obesity Father te Pancreatic cancer Sister 1 Bladder cancer Sister 2 Prostate cancer Uncle Relation Name Status Comments Father te Sister 1 Sister 2 Uncle Social History Tobacco Use Types Packs/Day Years Used Date Smoking Tobacco: Every Day Cigarettes 0.5 60 Started: [birth year]/01/1963 Passive Smoke Exposure: Current Smokeless Tobacco: Never Tobacco Cessation:Ready to Q uit: Not Asked; Counseling Given: Not Answered Comments:10-12 Cig. Daily Passive Exposure Comments: Alcohol Use Standard Drinks/Week Comments Never 0 (1 standard drink = 0.6 oz pur e alcohol) [facility] Utilities Answer Date Recorded In the past 12 months has e Cashback [employer], gas, oil, or water [employer] threatened to shut off services in your [...] week 06/29/2022 How often do you attend jain or baptist serv ices? Never 06/29/2022 Do you belong to any clubs o r organizations such as jain groups, unions, fraternal or athletic groups, or [...] care, and heating? Not very hard 10/19/2022 [facility] - Occupational Stress Questionnaire Answer Date [...] your living situation today? I have a [facility] place to live 09/17/2023 Education Answer Date Recorded What is the highest level of school you have completed or the highest degree you have received? 12th grade 06/29/2022 Sex and Gender Information Value Date Recorded Sex Assigned at Male 06/29/2022 5:22 PM STUMP BLOWER Gender Identity Male 06/29/2022 5:22 PM STUMP BLOWER Sexual Orientation Straight 06/29/2022 5: 22 PM STUMP BLOWER Last Filed Vital Signs Vital Sign Reading [...] PM CDT Clinical Communication Virtual Review in [place], [place] [address] [place] [address] 02/06/2024 9:00 AM CDT Appointment Department of Laboratory Medicine and Pathology, [facility] in [place], [place] [address] [place] [phone] Kamille White M.D., Ph.D. [address] [place] [phone] 02/06/2024 11:15 AM CDT Appointment Department of Radiology, [facility] in [place], [place] [address] [place] [phone] Kamille White M.D., Ph.D. [address] [place] [phone] 02/06/2024 2:00 PM CDT Office Visit Division of Hematology in [place], [place] [address] [place] [phone] Anna Arias APRN, C.N.P., D.N.P. [address] [place] [phone] Health Maintenance Due Date Last Done Comments Lung Cancer Screening 1945 COVID-19 Vaccine ( season) 2023 02/26/2023, 01/19/2022, 09/06/2021, Additional history exists Depression Screening (Annual PHQ-2) 04/23/2023 Fall Risk Screen (Annual) 04/23/2023 Thyroid Stimulating Hormone (TSH) test for thyroid function 07/01/2023 06/30/2022, 01/23/2014, 12/27/2012, Additional history exists Office Visit for Blood Pressure Check / Re-check 12/22/2023 09/21/2023 Influenza Vaccine (#1) 2024 , 01/23/2022, 03/16/2021, Additional history exists Sodium Level 02/08/2024 02/07/2023, 07/0 09/2022, 10/05/2022, Additional history exists Tobacco Cessation counseling 02/17/2024 02/16/2023 Creatinine Level (Kidney Function Test) 09/20/2024 09/21/2023, 05/28/2023, 02/07/2023, Additional history exists Potassium Level 09/20/2024 09/21/2023, 02/0 08/2023, 02/07/2023, Additional history exists DTaP,Tdap,and Td Vaccines (2 - Td or Tdap) 02/19/2029 02/19/2019, 04/23/2005 Pneumococcal vaccine (65+ years) Completed 01/22/2016, 08/23/2015, 02/18/2015 Zoster Vaccines Completed 04/26/2020, 02/25/2020 HPV Vaccines Aged Out No longer eligi ble based on patient's age to complete this topic Medical Devices Implanted Type Area Traffic Court Magistrate Device Identifier Shelf Expiration Date Model / [...] THYROID-STIMULATING HORMONE-SENSITIVE (S-TSH) Routine 06/30/2022 8:56 AM STUMP BLOWER Mass Thyroid from Last 3 Months or [...] Care Process Model and ACR TI-RADS. Link: https://askmayoexpert.[facility].org/topic/clinical-answers/cnt-03963901/sec-203 09523 ?? ACR Link: ??https://www.acr.org/Clinical-Resources/Hkefscuwm-ubm-Nazr-Systems/TI-RADS The AskMayoExpert Thyroid Nodule CPM states the [...] Nodule Care Process Model and ACR TI-RADS. Link:https://askmayoexpert.[facility].org/topic/clinical-answers/cnt-38853284/se c-203 20511 ACR Link:https://www.acr.org/Clinical-Resources/Aelzqeymh-lbb-Rysj-Systems/TI-RADS The AskMayoExpert Thyroid Nodule CPM states the [...] RADIOPHARMACEUTICAL/MEDS: Route: intravenous fludeoxyglucose F 18 injection [facility] (FDG F-18),9.93 millicurie TECHNIQUE: ??F-18 FDG PET/CT [...] RADIOPHARMACEUTICAL/MEDS: Route: intravenous fludeoxyglucose F 18 injection [facility] (FDG F-18),9.93 millicurie TECHNIQUE: F-18 FDG PET/CT [...] for further evaluation. Kamille White M.D., Ph.D. IMG NM PROCEDURES * (ABNORMAL) CBC with Differential, Blood (09/21/2023 9:30 AM CDT) Hemoglobin 14.3 13.2 - 16.6 g/dL 09/21/2023 [...] Kamille White M.D., Ph.D. LAB BLOOD ADD-ON [facility] [address] [place] [address], [facility] [address] [place], [place] [phone] [place] [address] [address] [place] [address] * AST (Aspartate Aminotransferase) (09/21/2023 9:30 AM CDT) Aspartate Aminotransferase (AST), P 18 8 - 48 U/L 09/21/2023 10:13 AM CDT METH Blood (Blood, Venous) 09/21/2023 9:30 AM CDT 09/21/2023 9:48 AM CDT Kamille White M.D., Ph.D. LAB BLOOD ADD-ON [facility] [address] [place] [address], [facility] METH [facility] [address] [place] [address] * Potassium (09/21/2023 9:30 AM CDT) Potassium, S 4.8 3.6 - 5.2 mmol/L 09/21/2023 10:29 AM CDT DTL Blood (Blood, Venous) 09/21/2023 9:30 AM CDT 09/21/2023 10:06 AM CDT Kamille White M.D., Ph.D. LAB BLOOD ADD-ON [facility] [address] [place] [address], [facility] DTL [facility] [address] [place] [address] * Alkaline Phosphatase (09/21/2023 9:30 AM CDT) [facility] Alkaline Phosphatase, S 66 40 - 129 U/L 09/21/2023 10:29 AM CDT DTL Blood (Blood, Venous) 09/21/2023 9:30 AM CDT 09/21/2023 10:06 AM CDT Kamille White M.D., Ph.D. LAB BLOOD ADD-ON [facility] [address] [place] [address], [facility] [address] [place] [address] * LD (Lactate Dehydrogenase) (09/21/2023 9:30 AM CDT) [facility] LD 181 122 - 222 U/L 09/21/2023 10:15 AM CDT DTL Blood (Blood, Venous) 09/21/2023 9:30 AM CDT 09/21/2023 9:59 AM CDT Kamille White M.D., Ph.D. LAB BLOOD NON ADD-ON Performing Organization Address City/[facility]/ZIP Co de Phone Number [facility] [address] [place] [address], [facility] [address] [place] [address] * (ABNORMAL) Creatinine with Estimated GFR (09/21/2023 9:30 AM CDT) [facility] Creatinine 1.75(H) 0.74 - 1.35 mg/dL 09/21/2023 10:29 AM CDT DTL Estimated GFR (eGFR) 40(L) >=60 mL/min/BSA 09/21/2023 10:29 AM CDT DTL Comment: Estimated GFR calculated using the 2020 CKD_EPI creatinine equation. Blood (Blood, Venous) 09/21/2023 9:30 AM CDT 09/21/2023 10:06 AM CDT Kamille White M.D., Ph.D. LAB BLOOD ADD-ON Performing Organization Address City/[facility] Co de Phone Number [facility] [address] [place] [address] * Calcium, Total (09/21/2023 9:30 AM CDT) Calcium, Total, S 10.0 8.8 - 10.2 mg/dL 09/21/2023 10:29 AM CDT DTL Blood (Blood, Venous) 09/21/2023 9:30 AM CDT 09/21/2023 10:06 AM CDT Kamille White M.D., Ph.D. LAB BLOOD ADD-ON Performing Organization Address [facility] Co de Phone Number [facility] [address] [place] [address] * Bilirubin, Total (09/21/2023 9:30 AM CDT) Bilirubin, Total, P 0.6 0.0 - 1.2 mg/dL 09/21/2023 10:13 AM CDT METH Blood (Blood, Venous) 09/21/2023 9:30 AM CDT 09/21/2023 9:48 AM CDT Kamille White M.D., Ph.D. LAB BLOOD ADD-ON Performing Organization Address City/[facility]/ZIP Co de Phone Number [facility] [address] [place] [address] * (ABNORMAL) Comprehensive Metabolic Panel (02/07/2023 12:20 [...] Putnam APRN, C.N.P., M.S. LAB BLOOD ADD-ON Performing Organization Address City/[facility]/ZIP Co de Phone Number [facility] [address] [place] [address], [facility] [address] [place] [address] * S-TSH (Thyroid-Stimulating Hormone - Sensitive) (06/30/2022 8:56 AM STUMP BLOWER) TSH, Sensitive 2.8 0.3 - 4.2 mIU/L 06/30/2022 10:07 AM STUMP BLOWER DTL Blood (Blood, Venous) 06/30/2022 8:56 AM STUMP BLOWER 06/30/2022 9:34 AM STUMP BLOWER Kevin Chun M.D. LAB BLOOD ADD-ON Performing Organization Address [facility] Co de Phone Number [facility] [address] [place] [address], [facility] [address] [place] [address] from Last 3 Months or Most Recently Relevant to Health Maintenance Care Teams Mortar Worker Relationship Specialty Start Date End Date Elsewhere, Pcp PCP - General Internal Medicine 02/16/23
--- OUTSIDE RECORDS SUMMARY | 2023-12-12 09:34 | XMS_ITS | Encounter Summary ---
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 [address] [place] [address] [facility] Referral ID Status Reason Start Date Expiration Date V isits Requested Visits Authorized [id number] Authorized 09/21/2023 09/20/2024 1 1 * Outpatient (Routine) - Authorized Specialty Diagnoses / Procedures Referred By Contac t Referred To Contact Hematology Oncology Kamille White M.D., Ph.D. [address] [place] [address] [facility] Referral ID Status Reason Start Date Expiration Date V isits Requested Visits Authorized [id number] Authorized 09/21/2023 03/22/2025 1 1 Reason for Visit * Outpatient (Routine) - Closed Specialty Diagnoses / Procedures Referred By Contcarlos alberto t Referred To Contact Hematology Oncology Kamille White M.D., Ph.D. [address] [place] [phone] [facility] Referral ID Status Reason Start Date Expiration Date Visits Re quested Visits Authorized [id number] Closed 05/28/2023 11/26/2024 1 1 Encounter Details Date Type Department Care Team (Late st Contact Info) Description 09/21/2023 4:30 PM CDT Office Visit Division of Hematology in [place], [place] [address] [place] [phone] Kamille White M.D., Ph.D. 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 Daily Passive Exposure Comments: Alcohol Use Standard Drinks/Week Comments Never 0 (1 standard drink = 0.6 oz pur e alcohol) [facility] [email or web address] Answer Date Recorded In the past 12 months has [facility] [employer], gas, oil, or water [facility] threatened to shut off services in your [...] week 06/29/2022 How often do you attend moravian or jewish serv ices? Never 06/29/2022 Do you belong to any clubs o r organizations such as moravian groups, unions, fraternal or athletic groups, or [...] care, and heating? Not very hard 10/19/2022 [facility] [employer] [place] of Occupat ional Health - Occupational Stress [...] your living situation today? I have a [facility] place to live 09/17/2023 Education Answer Date Recorded What is the highest level of school you have completed or the highest degree you have received? 12th grade 06/29/2022 Sex and Gender Information Value Date Recorded Sex Assigned at Male 06/29/2022 5:22 PM TMD TEACHER Gender Identity Male 06/29/2022 5:22 PM TMD TEACHER Sexual Orientation Straight 06/29/2022 5: 22 PM TMD TEACHER documented as of this encounter Last Filed Vital Signs Vital Sign Reading Time Taken Comments Blood Pressure 162/73 09/21/2023 4:15 PM CDT Pulse 75 09/21/2023 4:15 PM CDT Temperature 37.1 ??C (98.7 ??F) 09/21/2023 4:15 PM CD T Respiratory Rate - - Oxygen Saturation 96% 09/21/2023 4:15 PM CDT Inhaled Oxygen Concentration - - Weight 87.6 kg (193 lb 2 oz) 09/21/2023 4:15 PM CDT Height 174.4 cm (5' 8.66) 09/21/2023 4:15 PM CD T Body Mass Index 28.8 09/21/2023 4:15 PM CDT documented in this encounter Progress Notes * Kamille White M.D., Ph.D. - 09/21/2023 4:30 PM CDT SUBJECTIVE CHIEF COMPLAINT / REASON FOR VISIT Lauro Osorio is a 77 y.o. 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 for onset of neck swelling. CT imaging demonstrated large bilateral mass in the neck. Biopsy obtained and returned with diffuse large B-cell lymphoma. Referred to [facility] for treatment options. 06/29/2022 Critical Imaging [facility] interpretation of outside neck CT dated 06/19/2022 IMPRESSION: 1. Large left thyroid lobe mass is only partially visualized, 55 x 73 mm. This is compatible with history of thyroid neoplasm. This obliterates the fat planes between the trachea, esophagus and lowerleft internal jugular vein but the other regional vascular structures appear to have preserved fat planes. 2. There are several subcentimeter noncalcified bilateral (left upper lobe, left major fissure, right upper lobe, right major fissure, right lower lobe) pulmonary nodules that are too small to further characterize. Short-term follow- up to assess change is recommended as these would be too small to characterize by PET/CT. The thyroid subpleural nodules are most likely benign. [facility] interpretation of outside CT abdomen pelvis dated 06/29/2022 IMPRESSION: 1. Indeterminate 4.4 cm cystic mass with thick wall in the right kidney. Recommend renal ultrasoundfor further evaluation. 2. Indeterminate 3.5 cm solid mass in left kidney. Recommend renal ultrasound for further evaluation. 3. A 1 cm oval soft tissue mass in the subcutaneous fat of the anterior pelvic wall is indeterminate, metastasis versus benign skin lesion. 4. Abdomen and pelvis are otherwise negative for metastases. 5. A distal abdominal aortic aneurysm measures 3 cm anteroposteriorly. [facility] interpretation of outside CT neck dated 06/29/2022 IMPRESSION: Large left thyroid lobe mass associated with an enlarged necrotic level 5 lymph node on the left suggestive of thyroid malignancy. Biopsy results pending. 06/30/[address] Fabricio Self, ENT. Flexible laryngoscopy performed and demonstrated normal exam. Recommended repeat biopsy to confirm diagnosis. If confirmed lymphoma recommended hematology referral. If thyroid malignancy recommended surgical resection. PET scan for metastatic workup. 06/30/2022 Biopsy/Pathology Thyroid, Left mass, fine needle aspiration (smears/core biopsy): Positive for malignancy. Large B-cell lymphoma, non-germinal center B-cell phenotype by Lew algorithm, not a double expresser, negative for MYC rearrangement by FISH. 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 07/04/2022 Critical Imaging FDG PET-CT IMPRESSION: Large left thyroid malignancy measuring 7.4 x 7.3 x 7.8 cm that extends across the isthmus involving the right lobe measuring 2.8 x 2.8 x 4.7 cm. Left cervical metastatic lymphadenopathy involvement.Multiple bilateral tiny pulmonary nodules concerning for pulmonary metastatic disease. No evidence of distant metastatic disease. Marked cystic changes within the kidneys. Indeterminant 3.0 cm left renal solid nodule. 07/11/2022 Biopsy/Pathology FINAL DIAGNOSIS Peripheral blood, bone marrow aspirate and biopsy, iliac crest: No morphologic features of involvement by lymphoma Normocellular bone marrow with slightly increased granulopoiesis, slightly decreased erythropoiesisand otherwise morphologically unremarkable trilineage hematopoiesis 07/14/2022 - 09/15/2022 Chemotherapy R-CHOP (riTUXimab / cyclophosphamide / DOXOrubicin / vinCRIStine / predniSONE) Start Date: 07/14/2022 08/24/2022 Critical Imaging FDG PET-CT after 2 cycles of R-CHOP IMPRESSION: 1. Marked interval partial positive response to therapy, SUVmax currently 7.2, previously 30.9. Report indicates thyroid mass difficult to measure but is now only slightly enlarged with decreased rightward deviation of trachea. Previous left cervical chain lymphadenopathy has nearly completely resolved without any new FDG avid lymphadenopathy. No convincing metastatic disease. Residual Deauville 4 level uptake in the thyroid, which may in part represent posttreatment thyroiditis. 2. 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 10/04/2022 Critical Imaging FDG PET-CT after 4 cycles of R-CHOP shows minimal changes from 08/24/22. 10/09/[address] Bridger Lopes, radiation Oncology, for consolidative radiation treatment to the thyroid. Recommended 15 fractions to the thyroid. 10/12/2022 Biopsy/Pathology A. Thyroid, Right, Right lobe, fine needle aspiration (smears/core biopsy): Negative for malignancy. Benign thyroid nodule with chronic lymphocytic thyroiditis. 11/20/2022 - 12/08/2022 Radiation Therapy Total dose of 3000 cGy in 15 fractions Radiation Therapy Treatment Details (11/20/2022 - 12/08/2022) Site: Bilateral Head and neck Technique: IMRT Goal: Curative Planned Treatment Start Date: 11/20/2022 02/07/2023 Critical Imaging PET-CT IMPRESSION: Persistent FDG uptake within the right and left lobes of the thyroid gland likely inflammatory in nature, but residual lymphoma cannot be excluded. A repeat FDG PET/CT scan in 3-6 months would be helpful for further evaluation of the thyroid gland. Interim history He returns to clinic with spouse. Overall doing well since his last visit. No interim major illness. ECOG performance of 0. The following portions of the patient's history were reviewed and updated as appropriate: allergies, current medications, family history, medical history, social history, surgical history, and problem list. OBJECTIVE PHYSICAL EXAM Constitutional General: He is not in acute distress. HENT Mouth/Throat: Pharynx: Oropharynx is clear. Eyes General: No scleral icterus. Conjunctiva/sclera: Conjunctivae normal. Cardiovascular Rate and Rhythm: Normal rate. Heart sounds: Normal heart sounds. Pulmonary Effort: Pulmonary effort is normal. Breath sounds: Normal breath sounds. Abdominal General: Abdomen is flat. Bowel sounds are normal. Palpations: Abdomen is soft. Tenderness: There is no abdominal tenderness. Musculoskeletal General: No swelling or tenderness. Right lower leg: No edema. Left lower leg: No edema. Lymphadenopathy Cervical: No cervical adenopathy. Upper Body: Right upper body: No axillary adenopathy. Left upper body: No axillary adenopathy. Lower Body: No right inguinal adenopathy. No left inguinal adenopathy. Skin Coloration: Skin is not jaundiced. Neurological General: No focal deficit present. Mental Status: He is oriented to person, place, and time. 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 Studies are reassuring for complete remission of lymphoma. The ultrasound of the thyroid also confirmed no concern for lymphoma involvement and that the PET avidity is likely related to ongoing inflammation and/or postradiation changes. We will reassess in 4-6 months' time. #2 PERI #3 Hypertension The elevated creatinine persists since the last visit. Discussed that this may be related to dehydration, hypertension, medications and other issues. The level could change very quickly and should bemonitored and evaluated with his primary care provider on return visit. We will fax this note to the primary care provider for follow-up. He is instructed to contact his primary care provider for follow-up as well. #4 Nicotine Dependence Referral made to nicotine dependence clinic. documented in this encounter Plan of Treatment Upcoming Encounters Date Type Department Care Team (Latest Contact Info) Description 02/04/2024 2:30 PM CDT Clinical Communication Virtual Review in [place], [place] 200 [place] [address] 02/06/2024 9:00 AM CDT Appointment Department of Laboratory Medicine and Pathology, [facility] in [place], [place] [address] [place] [phone] Kamille White M.D., Ph.D. [address] [place] [phone] 02/06/2024 11:15 AM CDT Appointment Department of Radiology, [facility] in [address] [phone] Kamille White M.D., Ph.D. [address] [place] [phone] 02/06/2024 2:00 PM CDT Office Visit Division of Hematology in [address] [phone] Anna Arias APRN, C.N.P., D.N.P. 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) Expected: 02/04/2024 (Approximate), Expires: 12/21/2024 Calcium, Total Lab Routine 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) Expected: 02/04/2024 (Approximate), Expires: 12/21/2024 CBC with Differential, Blood Lab Routine 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) Expected: 02/04/2024 (Approximate), Expires: 12/21/2024 Creatinine with Estimated GFR Lab Routine 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) Expected: 02/04/2024 (Approximate), Expires: 12/21/2024 LD (Lactate Dehydrogenase) Lab Routine 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) Expected: 02/04/2024 (Approximate), Expires: 12/21/2024 Potassium Lab Routine 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) Expected: 02/04/2024 (Approximate), Expires: 12/21/[address] Skull to Thigh FDG Imaging RAD - Routine (most inpatients and all outpatients) 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) Expected: 02/04/2024 (Approximate), Expires: 12/21/2024 Scheduled Referrals Name Type Priority Associated Diagnoses Order Schedule Hematology office visit (clinic) [place]; Lymphoma; General Outpatient Referral Routine Expected: 02/04/2024 (Approximate), Expires: 12/21/2024 documented as of this encounter Visit Diagnoses Diagnosis 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
--- OUTSIDE RECORDS SUMMARY | 2023-12-12 09:34 | XMS_ITS | Encounter Summary ---
Author Organization [facility] Address [address] [place] [address] Care Team Providers Care Progress Man Name Role Phone Elsewhere, Pcp Primary Care Provider Unavailabl e Reason for Referral * Outpatient (Routine) - Closed Specialty Diagnoses / Procedures Referred By Benjamin aguilar Referred To Contact Diagnoses Nodule Thyroid Procedures US Thyroid Kamille White M.D., Ph.D. [address] [place] [address] [facility] Referral ID Status Reason Start Date Expiration Date Visits Re quested Visits Authorized [id number] Closed 06/08/2023 06/07/2024 1 1 Reason for Visit * Outpatient (Routine) - Closed Specialty Diagnoses / Procedures Referred By Benjamin aguilar Referred To Contact Diagnoses Nodule Thyroid Procedures US Thyroid Kamille White M.D., Ph.D. [address] [place] [phone] [facility] Referral ID Status Reason Start Date Expiration Date Visits Re quested Visits Authorized [id number] Closed 06/08/2023 06/07/2024 1 1 Encounter Details Date Type Department Care Team (Latest Contact Info) Description 09/21/2023 11:21 AM CDT - 09/21/2023 11:59 PM CDT Hospital Encounter Department of Radiology, [facility], in [place], [place] 200 [place] [address] Kamille White M.D., Ph.D. 200 [place] [address] Nodule Thyroid Discharge Disposition: Home or Self Care Social History Tobacco Use Types Packs/Day Years Used Date Smoking Tobacco: Every Day Cigarettes 0.5 60 Started: [birth year]/01/1963 Passive Smoke Exposure: Current Smokeless Tobacco: Never Comments:10-12 Cig. Daily Passive Exposure Comments: Alcohol Use Standard Drinks/Week Comments Never 0 (1 standard drink = 0.6 oz pur e alcohol) [facility] Utilities Answer Date Recorded In the past 12 months has e electric, gas, oil, or water [employer] threatened to shut off services in your [...] week 06/29/2022 How often do you attend presybeterian or yarsanism serv ices? Never 06/29/2022 Do you belong to any clubs o r organizations such as presybeterian groups, unions, fraternal or athletic groups, or [...] care, and heating? Not very hard 10/19/2022 [facility] [place] of Occupat ional Health - Occupational Stress [...] Date Recorded Dental: Regular Dentist No 06/30/19 23 Employment Answer Date Recorded Employment status Permanently disabled Housing Stability Answer Date Recorded What is your living situation today? I have a [facility] place to live 09/17/2023 Education Answer Date Recorded What is the highest level of school you have completed or the highest degree you have received? 12th grade 06/29/2022 Sex and Gender Information Value Date Recorded Sex Assigned at Male 06/29/2022 5:22 PM SHOE STOCK ASSOCIATE Gender Identity Male 06/29/2022 5:22 PM SHOE STOCK ASSOCIATE Sexual Orientation Straight 06/29/2022 5: 22 PM SHOE STOCK ASSOCIATE documented as of this encounter Medications at Time of Discharge Medication Sig Dispensed Refills Start Date End Date amLODIPine (NORVASC) 5 mg tablet Take 5 mg by mouth at bedtime. 08/28/2016 levothyroxine (SYNTHROID, LEVOTHROID) 100 mcg tablet Take 100 mcg by mouth daily. 03/30/2022 hamudubi-kutnlxajc-BB (CORTISPORIN) 3.5-10,000-1 mg/mL-unit/mL-% otic solution Administer 1-2 drops into each ear as needed. INSTILL 4 DROPS INTO THE EAR(S) EVERY 8 HOURS FOR EAR PAIN* 12/21/2022 triamterene-hydroCHLOROt hiazide (DYAZIDE) 37.5-25 mg per capsule Take 1 capsule by mouth every morning. 03/12/2023 documented as of this encounter Plan of Treatment Upcoming Encounters Date Type Department Care Team (Latest Contact Info) Description 02/04/2024 2:30 PM CDT Clinical Communication Virtual Review in [place], [place] 200 [place] [address] 02/06/2024 9:00 AM CDT Appointment Department of Laboratory Medicine and Pathology, [place], [place] [address] [place] [phone] Kamille White M.D., Ph.D. [address] [place] [phone] 02/06/2024 11:15 AM CDT Appointment Department of Radiology, [place], [place] [address] [place] [phone] Kamille White M.D., Ph.D. [address] [place] [phone] 02/06/2024 2:00 PM CDT Office Visit Division of Hematology in [place], [place] [address] [place] [address] Anna Arias APRN, C.N.P., D.N.P. [address] [place] [address] documented as of this encounter Procedures Procedure Name Priority Date/Time Associated Diagnosis Comments US THYROID RAD - Routine (most inpatients and all outpatients) 09/21/2023 12:24 PM CDT Nodule Thyroid documented in this encounter Results * US Thyroid (09/21/2023 12:24 PM [...] Care Process Model and ACR TI-RADS. Link: https://askmiyoexpert.[email or web address]/topic/clinical-answers/cnt-[email or web address]/sec-[email or web address] 66254 ?? ACR Link: ??https://www.acr.org/Clinical-Resources/Epwvaqooc-tfe-Ttdg-Systems/TI-RADS The AskAkyoExpert Thyroid Nodule CPM states the following recommendations: [...] Nodule Care Process Model and ACR TI-RADS. Link:https://[email or web address].[email or web address]/topic/clinical-answers/[email or web address]/se c-[email or web address] 33950 ACR Link:https://www.acr.org/Clinical-Resources/Sofloimgc-jax-Zowd-Systems/TI-RADS The AskAkyoExpert Thyroid Nodule CPM states the followingrecommendations: No [...] Kamille White M.D., Ph.D. IMG US PROCEDURES documented in this encounter Visit Diagnoses Diagnosis Nodule Thyroid documented in this encounter Care Teams Progress Man Relationship Specialty Start Date End Date Elsewhere, Pcp PCP - General Internal Medicine 02/16/23 documented as of this encounter
--- OUTSIDE RECORDS SUMMARY | 2023-12-12 09:34 | XMS_ITS | Encounter Summary ---
Author Organization [facility] Address [address] [place] [address] Care Team Providers Care Websphere Message Broker Developer Name Role Phone Elsewhere, Pcp Primary Care Provider Unavailabl e Reason for Visit * Reason Onset Date Comments Pre-visit Intake 09/18/2023 Encounter Details Date Type Department Care Team (Latest Contact Info) Description 09/18/2023 2:15 PM CDT Clinical Communication Virtual Review in [place], [place] 200 [place] [address] Pre-visit Intake Social History Tobacco Use Types Packs/Day Years Used Date Smoking Tobacco: Every Day Cigarettes 0.5 60 Started: 12/01/1963 Passive Smoke Exposure: Current Smokeless Tobacco: Never Tobacco Cessation:Ready to Q uit: Not Asked; Counseling Given: Not Answered Comments:10-12 Cig. Daily Passive Exposure Comments: Alcohol Use Standard Drinks/Week Comments Never 0 (1 standard drink = 0.6 oz pur e alcohol) [facility] Utilities Answer Date Recorded In the past 12 months has [employer], gas, oil, or water company threatened [...] week 06/29/2022 How often do you attend scientology or voodoo serv ices? Never 06/29/2022 Do you belong to any clubs o r organizations such as scientology groups, unions, fraternal or athletic groups, or [...] care, and heating? Not very hard 10/19/2022 [facility] [place] of Occupat ional Health - Occupational Stress [...] your living situation today? I have a [facility] place to live 09/17/2023 Education Answer Date Recorded What is the highest level of school you have completed or the highest degree you have received? 12th grade 06/29/2022 Sex and Gender Information Value Date Recorded Sex Assigned at Male 06/29/2022 5:22 PM QUALITY FACILITATOR Gender Identity Male 06/29/2022 5:22 PM QUALITY FACILITATOR Sexual Orientation Straight 06/29/2022 5: 22 PM QUALITY FACILITATOR documented as of this encounter Plan of Treatment Upcoming Encounters Date Type Department Care Team (Latest Contact Info) Description 02/04/2024 2:30 PM CDT Clinical Communication Virtual Review in [place], [place] 200 [place] [address] 02/06/2024 9:00 AM CDT Appointment Department of Laboratory Medicine and Pathology, [facility] in [place], [place] [address] [place] [phone] Kamille White M.D., Ph.D. [address] [place] [phone] 02/06/2024 11:15 AM CDT Appointment Department of Radiology, [facility] in [place], [place] [address] [place] [phone] Kamille White M.D., Ph.D. [address] [place] [phone] 02/06/2024 2:00 PM CDT Office Visit Division of Hematology in [place], [place] [address] [place] [phone] Anna Arias APRN, C.N.P., D.N.P. [address] [place] [phone] documented as of this encounter Visit Diagnoses Not on filedocumented in this encounter Care Teams Websphere Message Broker Developer Relationship Specialty Start Date End Date Elsewhere, Pcp PCP - General Internal Medicine 02/16/23 documented as of this encounter
--- OUTSIDE RECORDS SUMMARY | 2023-12-12 09:34 | XMS_ITS | Clinical Summary ---
Author Organization [employer] [facility] Address [place], [place] [address] Care Team Providers Care Phosphatic Fertilizer Supervisor Name Role Phone Osmin Priest MD Primary Care Provider Allergies Active Allergy Reactions Criticality Noted Date Comments Nsaids (Non-Steroidal Anti-I nflammatory Drug) GI Upset 10/20/2015 Medications Medication Sig Dispensed Refills Start Date End Date Status levothyroxine (SYNTHROID) 100 mcg tablet Take 1 tablet by mouth before breakfast. 0 12/20/2015 Active amLODIPine (NORVASC) 5 mg tablet Take 1 tablet by mouth once daily. 0 12/20/2015 Active Active Problems Problem Noted Date Diagnosed Date Prostate cancer 01/24/2016 Elevated PSA 10/20/2015 Benign non-nodular prostatic hyperplasia with lower urinary tract symptoms 10/20/2015 Family History Medical History Relation Name Comments Heart Disease Father Relation Name Status Comments Father Social History Tobacco Use Types Packs/Day Years Used Date Smoking Tobacco: Every Day Cigarettes 1 50 Tobacco Cessation:Ready to Q uit: No; Counseling Given: Yes Alcohol Use Standard Drinks/Week Comments Yes 0 (1 standard drink = 0.6 oz pur e alcohol) very little Sex and Gender Information Value Date Recorded Sex Assigned at Not on file Gender Identity Not on file Sexual Orientation Not on file Obstetrics History Last Filed Vital Signs Vital Sign Reading Time Taken Comments Blood Pressure 170/84 01/26/2016 11:30 AM CDT Pulse 80 01/26/2016 11:30 AM CDT Temperature 36.3 ??C (97.4 ??F) 01/26/2016 1 1:30 AM CDT Respiratory Rate 18 10/20/2015 10:3 0 AM CDT Oxygen Saturation 96% 01/24/2016 4:32 PM CDT Inhaled Oxygen Concentration - - Weight 85.6 kg (188 lb 11.2 oz) 01/24/2016 4:32 PM CDT Height 172 cm (5' 7.72) 12/20/2015 10: 13 AM CDT Body Mass Index 28.93 12/20/2015 10:13 AM CDT Plan of Treatment Health Maintenance Due Date Last Done Comments Tdap 1956 Depression screening for age 12+ 1957 Hepatitis C screening for age 18-79 12/25/1963 Tetanus booster 1965 Zoster (shingles) series for age 50+ (1 of 2) 12/25/1995 Pneumococcal series for age 65+ (1 of 1 - PCV) 2010 BMI (ht and wt on same day) for age 18+ 12/19/2016 0 12/20/2015, 10/20/2015 COVID-19 vaccine series (1 - 2022-24 season) 2022 Influenza for age 65+ 12/23/2023 Care Teams Phosphatic Fertilizer Supervisor Relationship Specialty Start Date End Date Osmin Priest MD [address] [place], [place] [phone] PCP - General 08/24/15
--- OUTSIDE RECORDS SUMMARY | 2023-12-12 09:34 | XMS_ITS | Encounter Summary ---
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 [address] [place] [address] [employer] Referral ID Status Reason Start Date Expiration Date Visits Re quested Visits Authorized [id number] Closed 05/28/2023 05/27/2024 1 1 Encounter Details Date Type Department Care Team (Latest Contact Info) Description 09/21/2023 9:36 AM CDT - 09/21/2023 11:20 AM CDT Hospital Encounter Department of Radiology, [facility], in [place], [place] [address] [place] [address] Kamille White M.D., Ph.D. 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 Daily Passive Exposure Comments: Alcohol Use Standard Drinks/Week Comments Never 0 (1 standard drink = 0.6 oz pur e alcohol) [facility] Utilities Answer Date Recorded In the past 12 months has [employer], gas, oil, or water [employer] threatened to shut off services in your [...] week 06/29/2022 How often do you attend rastafarian or holiness serv ices? Never 06/29/2022 Do you belong to any clubs o r organizations such as rastafarian groups, unions, fraternal or athletic groups, or [...] care, and heating? Not very hard 10/19/2022 [facility] - Occupational Stress [...] your living situation today? I have a [facility] place to live 09/17/2023 Education Answer Date Recorded What is the highest level of school you have completed or the highest degree you have received? 12th grade 06/29/2022 Sex and Gender Information Value Date Recorded Sex Assigned at Male 06/29/2022 5:22 PM [employer] Gender Identity Male 06/29/2022 5:22 PM [employer] Sexual Orientation Straight 06/29/2022 5: 22 PM [employer] documented as of this encounter Medications at Time of Discharge Medication Sig Dispensed Refills Start Date End Date amLODIPine (NORVASC) 5 mg tablet Take 5 mg by mouth at bedtime. 08/28/2016 levothyroxine (SYNTHROID, LEVOTHROID) 100 mcg tablet Take 100 mcg by mouth daily. 03/30/2022 onwvuijx-ewvqlxebg-WJ (CORTISPORIN) 3.5-10,000-1 mg/mL-unit/mL-% otic solution Administer 1-2 [...] PM CDT Clinical Communication Virtual Review in [place], [place] [address] [place] [address] 02/06/2024 9:00 AM CDT Appointment Department of Laboratory Medicine and Pathology, [facility] in [address] [phone] Kamille White M.D., Ph.D. [address] [place] [phone] 02/06/2024 11:15 AM CDT Appointment Department of Radiology, [facility] in [place], [place] [address] [place] [address] Kamille White M.D., Ph.D. [address] [place] [phone] 02/06/2024 2:00 PM CDT Office Visit Division of Hematology in [place], [place] [address] [place] [phone] Anna Arias APRN, C.N.P., D.N.P. 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
== END 2023-12-12 09:31 | disposition home or self-care (01) ==
PROVIDERS: PCP Internal Medicine; Visit Provider Internal Medicine
DX: I10 Essential (primary) hypertension (principal); E03.9 Hypothyroidism, unspecified; C61 Malignant neoplasm of prostate; M10.9 Gout, unspecified; Z12.5 Encounter for screening for malignant neoplasm of prostate
CPT/HCPCS: 80053; 80061; 84443; G0103

== ENCOUNTER 2024-06-18 09:54 | Outpatient (CLI) | payer MEDICARE, SELFPAY | END 2024-06-18 09:55 | disposition home or self-care (01) | LOC: US 09:55 | PROVIDERS: PCP Internal Medicine; Visit Provider Internal Medicine | DX: N28.89 Other specified disorders of kidney and ureter (principal); N28.1 Cyst of kidney, acquired | CPT/HCPCS: 76770 ==

== ENCOUNTER 2024-07-03 07:06 | Outpatient (CLI) | payer MEDICARE, SELFPAY ==
--- NOTE | 2024-07-03 07:15 | CRLHL7_ITS ---
For Patients: As a result of the Cures Act, medical imaging exams and procedure reports are released immediately into your electronic medical record. You may view this report before your referring provider. If you have questions, please contact your health care provider. INDICATION: Left renal mass. COMPARISON: CT scan of the chest, abdomen, and pelvis dated 29 June 2022. TECHNIQUE: Abdominal MRI with T1 in- and out of phase, T2, diffusion weighted, and progressively delayed post-contrast images. Intravenous gadolinium administered. Findings : Minimal diffuse fatty infiltration of the liver. A few very small probable cysts in the liver. No other focal abnormalities identified in the visualized portions of the liver, spleen, pancreas, and adrenal glands. Multiple bilateral renal cysts with the largest extending off the lower pole of the right kidney measuring 6.7 cm. 3.6 cm cyst containing hemorrhagic debris extending off the lower pole of the left kidney shows no enhancement and is unchanged. The kidneys are otherwise unremarkable. No hydronephrosis. No adenopathy. Atherosclerotic irregularity of the abdominal aorta. Impression : 1. Multiple bilateral renal cysts. 2. 3.6 cm cyst containing hemorrhagic debris extending off the lower pole of the left kidney is unchanged. Dictated by Rigo Johnson MD @ 07/03/2024 3:34:56 PM (Electronically Signed)
== END 2024-07-03 07:07 | disposition home or self-care (01) ==
LOC: MRI 07:07
PROVIDERS: PCP Internal Medicine; Visit Provider Internal Medicine
DX: N28.89 Other specified disorders of kidney and ureter (principal); N28.1 Cyst of kidney, acquired
CPT/HCPCS: 74183; A9575

== ENCOUNTER 2025-01-22 09:15 | Outpatient (RCR) | payer MEDICARE, SELFPAY ==
--- NOTE | 2025-01-01 15:45 | PT.OPEX ---
[facility] Outpatient Eval PT [facility] Outpatient Eval Start: 01/01/25 13:49 Freq: Status: Active Protocol: Document 01/01/25 13:51 NLR (Rec: 01/01/25 15:41 NLR [id number]) E-signed By Fiorella Stroud DPT Physical Therapy Outpatient Evaluation Insurance Information Recert Due Date 04/01/25 Insurance Name Medicare B,UCare Insurance are Medicare Advantage Information/Comments Medical Diagnosis M70.72 L hip bursitis Treating Diagnosis M25.552 L hip pain M76.02 Gluteal tendinopathy L Imaging Report 12/11/24 Xray L hip: No significant joint space Information narrowing or osteophytic spurring. No fractures or pathologic lesions. Subjective Preferred Name LOREE Subjective Loree arrives for PT evaluation with longstanding history of left hip pain that has worsened over the last 5 years. He seldomly has similar issues with the R hip. He has R>L shoulder issues as well. Pain Comments 1-11/30 worse with walking intense. Walking a distance burning pain with stiffness. Better with rest. He has tried any pain meds or heat/ice. Pain doesn't follow any pattern except with walking, it does not wake him at him at night. When it acts up it goes down my leg and I start walking funny. 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 Lore[facility] with a few steps to get in with his . Once inside everything is on the main level. Precautions Treatment R>L shoulder pain, lymphoma 2.5 years ago, B feet Precautions/ neuropathy (chemo induced), L hip pain, hypothyroidism. Contraindications He denies pacemaker. Weight Bearing Full Weight Bearing Status Therapy Limitations/ Not Limited,Hearing Systems Review Objective Other/Pertinent ROM: RIGHT hip flexion 0-90; LEFT hip flexion 0-100; Objective RIGHT hip abduction 0-20; LEFT hip abduction 0-30; RIGHT hip ER 0-25; LEFT hip ER 0-40; RIGHT hip IR0-20; LEFT hip IR 0-30 STRENGTH: RIGHT leg 4/5; LEFT leg 4+/5 POSTURE: forward flexed, B neutral foot PALPATION: Patient exhibits tenderness to palpation at rightdeep hip rotators, glute min/med. EDEMA: no edema noted. SPECIAL TESTS: Positive BILATERAL Karsten test, Valdez test, FADDIR, ELIOT. FUNCTIONAL: Sit to/from stand independent; sit to/from supine independent. GAIT: Gait independent with no gait aid. Pattern is antalgic, wide based. He can do stairs, exhibits a step over step pattern up and down. FOOTWEAR: Patient arrives wearing slip on shoes [ Similar to a Hey Dude] that does not provide adequate biomechanical support for their foot. He does not wear a supportive shoe or slipper with arch support in the home. EQUIPMENT: Patient has no equipment or gait aid. Functional Test 01/01/25: HOOS-12 Score: 60.4 / 100 = 60.4 % Performed & Score Assessment Assessment/ Loree is a 79-year-old male who presents for skilled PT Impression evaluation presenting with right hip pain and stiffness which is consistent with R deep hip rotator/piriformis spasm in the setting of significant hypoflexibility and probable bursal irritation. Patient is an appropriate candidate for skilled physical therapy to target deficits described above. Skilled PT intervention is necessary to achieve goals as stated. D /C plan and criteria is for patient to achieve the goals as outlined or until max rehab potential is met. Patient was agreeable with plan of care and goals established. This evaluation is of low complexity due to the stable nature of the patient?s presentation as well as the low comorbidities and medical factors included in this evaluation. Primary Functional Difficulty walking long distances, difficulty going up Limitations and down stairs. Plan of Care Rehabilitation Good Potential Rehabilitation The patient's rehab potential is likely limited due to Potential Comments co-morbidities of advanced age, diabetes, hypertension. Physical Therapy 1. Patient will be independent with home exercise Goals program as instructed, modified and progressed by physical therapist in order to be independently and actively participating in their rehabilitation and return to prior level of function. Goal to be achieved by 03/27/2025. 2. Patient will demonstrate ability to walk for 60 minutes(s) without significant increase in pain greater than 2/10 to allow patient to be able to safely and independently return to participation in desired level of function with daily activities such walking for exercise, participating in desired recreational activities without pain or difficulty. Goal to be achieved by 03/27/2025. 3. Patient will ascend/descend 2 full flight(s) of stairs with [id number] pattern without significant increase in difficulty or pain over 06/02 allowing for safe and independent mobility through their home/work environment. Goal to be achieved by 03/27/2025. Coordination/ Referral Source Communication With Treatment Plan/ Dry Needling,Electrical Stimulation,Gait Training,Heat, Direct Interventions Manual Therapy,Neuromuscular Re-ed,Orthotics/Braces, Self-Care/Home Management,Therapeutic Activities, Therapeutic Exercises Frequency/Duration 1X/week for 4-6 weeks Patient Will Be Completion of LTG(s),Skills Plateau,Independent w/HEP, Discharged From Independently Progressing Therapy Discharge Plan DC with HEP Comments Evaluation Billing Untimed Code 20 Treatment Minutes PT Eval No Charge No Complexity Low Certification Information Initial 01/01/25 Certification Date Ending Certification 04/01/25 Date Provider Signature Yes Required Provider Signature POC & Medical Necessity Shows Agreement With Physician NPI Number Write NPI# Here Physician Comment/ : Change Physician Signature Please Sign/Date Here & Date Requested
== END 2025-02-26 11:25 | disposition home or self-care (01) ==
PROVIDERS: PCP Internal Medicine; Visit Provider Orthopaedic Surgery
DX: M70.72 Other bursitis of hip, left hip (principal); M76.02 Gluteal tendinitis, left hip; M25.552 Pain in left hip; Z51.89 Encounter for other specified aftercare
CPT/HCPCS: 97110; 97112; 97161